=== PATIENT | female | born 1995 | race Hispanic/Latino ===

== ENCOUNTER 2017-11-21 18:06 | Emergency (ER) | payer OTHER ==
[~2017-11-21] VITALS: Ht 162.6 cm; Wt 104.3 kg
[~2017-11-21 18:06] MED LIST: ZANTAC150 MG PO
[2017-11-21] MEDS ORDERED: ALPRAZOLAM0.5 MG PO (18:31)
[2017-11-21] MEDS ORDERED: ONDANSETRON ODT8 MG PO (18:31)
[2017-11-21] MEDS ORDERED: AUGMENTIN 875-1 EACH PO (20:32)
== END 2017-11-21 20:36 | disposition home or self-care (01) ==
LOC: ED 18:06
DX: N89.8 Other specified noninflammatory disorders of vagina (principal); Z79.899 Other long term (current) drug therapy
CPT/HCPCS: 81001; 99283

== ENCOUNTER 2021-01-26 00:13 | Inpatient (IN) | payer OTHER ==
[~2021-01-26] VITALS: Ht 160 cm; Wt 111.1 kg
[~2021-01-26 00:13] MED LIST changes: +ALPRAZOLAM0.5 MG PO; +AUGMENTIN 875-1 EACH PO; +ONDANSETRON ODT8 MG PO
--- NOTE | 2021-01-26 02:37 | PR ---
[facility] [address] [facility] [address] [place] [address] Signed Progress Notes IP Datetime Report Generated by CPN: 01/26/2021 02:37 PROGRESS NOTES: [id number] Impression: Normal Progression of Labor Procedures: Artificial ROM VITAL SIGNS: [id number] Vital Signs: Reviewed; Within Normal Limits EXAM: [id number] Dilatation: 8.0 Effacement: 90 Station: -1 Contractions: every 3-4 minutes MEMBRANES: [id number] Membranes Status: Ruptured Comments: Doing well, will continure monitoring FETUS A: [id number] FHR Baseline: 130 Variability: Moderate 6-25bpm Accelerations: 15X15 Presentation: Vertex FETUS B: [id number] Signing Physician: Shekhar Nunez MD Copies: ~ *Electronically Signed* 01/26/21 0237 SHEKHAR NUNEZ MD PATIENT NAME: DESIREE SEPULVEDA PROGRESS NOTE DATE OF : 95 PHYSICIAN: SHEKHAR NUNEZ MD RPT #: [id number] REPORT IS CONFIDENTIAL AND NOT TO BE RELEASED WITHOUT AUTHORIZATION
--- NOTE | 2021-01-26 05:12 | PR ---
[facility] [address] [facility] [place], [place] [address] Signed Progress Notes IP Datetime Report Generated by CPN: 01/26/2021 05:12 PROGRESS NOTES: [id number] Impression: Arrest of Dilatation/Descent Procedures: Intrauterine Pressure Catheter Plan: Continue Present Management VITAL SIGNS: [id number] Vital Signs: Reviewed; Within Normal Limits EXAM: [id number] Dilatation: 9.0 Effacement: 90 Station: -1 Contractions: every 3-4 minutes MEMBRANES: [id number] Membranes Status: Ruptured Comments: No change in about 2 hours, contracitons seem adequate. Asael has been in High Fowlers position. Will try Hands-Knees. Discussed popssibility of C/S if continued arrest. FETUS A: [id number] FHR Baseline: 130 Variability: Moderate 6-25bpm Accelerations: 15X15 Presentation: Vertex FETUS B: [id number] Signing Physician: Shekhar Nunez MD Copies: ~ *Electronically Signed* 01/26/21511 SHEKHAR NUNEZ MD PATIENT NAME: DESIREE SEPULVEDA PROGRESS NOTE DATE OF : 95 PHYSICIAN: SHEKHAR NUNEZ MD [facility] #: [id number] REPORT IS CONFIDENTIAL AND NOT TO BE RELEASED WITHOUT AUTHORIZATION
--- NOTE | 2021-01-26 06:08 | PR ---
[facility] [address] [facility] [place], [place] [address] Signed Progress Notes IP Datetime Report Generated by CPN: 01/26/2021 06:08 PROGRESS NOTES: [id number] Impression: Arrest of Dilatation/Descent Procedures: Intrauterine Pressure Catheter Plan: Deliver- Section Informed Consent Obtain: Section Delivery VITAL SIGNS: [id number] Vital Signs: Reviewed; Within Normal Limits EXAM: [id number] Dilatation: 8.0 Effacement: 90 Station: -2 Contractions: every 3-4 minutes MEMBRANES: [id number] Membranes Status: Ruptured Comments: No change for 3 hours now, adequate contractions, with cervix less dilated and head slightly higher. Recommend C/S. Discussed procedure, risks, benefits, timing. Consent signed. OR and Anesthesia FETUS A: [id number] FHR Baseline: 130 Variability: Moderate 6-25bpm Accelerations: 15X15 Presentation: Vertex FETUS B: [id number] Signing Physician: Shekhar Nunez MD Copies: ~ *Electronically Signed* 01/26/21 0608 SHEKHAR NUNEZ MD PATIENT NAME: SEPULVEDADESIREE PROGRESS NOTE DATE OF : 95 PHYSICIAN: SHEKHAR NUNEZ MD RPT #: [id number] REPORT IS CONFIDENTIAL AND NOT TO BE RELEASED WITHOUT AUTHORIZATION
--- NOTE | 2021-01-26 08:21 | NUR ---
01/26/21 0821 Sun Andersen 0810: PT TO ROOM 102 FOR PACU RECOVERY. AWAKE AND ALERT. STATING 4/10 INCISIONAL PAIN. IV TYLENOL RECEIVED IN OR AND EPIDURAL DOSED JUST PRIOR TO END OF PROCEDURE. VSS, RESP EVEN AND UNLABORED. O2 SAT STABLE >98% ON RA. DENIES NAUSEA. FUNDUS FIRM, BLEEDING LIGHT 0819: SKIN TO SKIN WITH PT AND PT BEGINS TO BREASTFEED INDEPENDENTLY. REPORTING IMPROVED PAIN CONTROL WITH PREVIOUSLY GIVEN RX. VSS, RESP EVEN AND UNLABORED. SATS REMAIN STABLE. FUNDUS FIRM, BLEEDING LIGHT.
--- NOTE | 2021-01-27 08:21 | PR ---
[facility] [address] [facility] [place], [place] [address] Signed PP Progress Notes Datetime Report Generated by CPN: 01/27/2021 08:20 SUBJECTIVE: [id number] Pain: Within Normal Limits Nausea/Vomiting: Denies Flatus: Yes Bowel Movement: No Vital Signs: [id number] Vital Signs: Reviewed; Within Normal Limits EXAM: Ongoing Cardiovascular: Normal Respiratory: Normal Abdomen/Uterus: Normal Lochia: Normal Vulva/Perineum: Not Done Breasts: Not Done CVA Tenderness: Normal Extremities: Normal Incision: Normal Progress: Normal Exam Comments: Fundus firm U-2 nontender Incision healing well. IMPRESSION/PLAN/PROCEDURES: [id number] Impression: Normal Progression Plan: Continue Present Management Progress Notes: Pt seen and examined, doing well. Ambualting, voiding, and tolerating full diet. Pain and lochia minimal well. No fevers/chills or other concerns. Hgb 11.4. Anticipate d/c home tomorrow Signing Physician: Raz Francisco DO Copies: ~ *Electronically Signed* 01/27/21819 RAZ FRANCISCO DO PATIENT NAME: DESIREE SEPULVEDA RECORD #: [id number] PROGRESS NOTE DATE OF : 95 PHYSICIAN: RAZ FRANCISCO DO RPT #: [id number] REPORT IS CONFIDENTIAL AND NOT TO BE RELEASED WITHOUT AUTHORIZATION
--- NOTE | 2021-01-28 07:47 | PR ---
[facility] [address] [place], [place] [address] Signed PP Progress Notes Datetime Report Generated by CPN: 01/28/2021 07:47 SUBJECTIVE: [id number] Pain: Within Normal Limits Nausea/Vomiting: Denies Flatus: Yes Bowel Movement: No Vital Signs: [id number] Vital Signs: Reviewed; Within Normal Limits EXAM: Ongoing Cardiovascular: Normal Respiratory: Normal Abdomen/Uterus: Normal Lochia: Normal Vulva/Perineum: Not Done Breasts: Not Done CVA Tenderness: Normal Extremities: Normal Incision: Normal Progress: Normal Exam Comments: Fundus firm U-2. Incision clean dry and intact w/ eun in place. No erythema / edema. IMPRESSION/PLAN/PROCEDURES: [id number] Impression: Normal Progression Plan: Discharge Progress Notes: Pt seen and examined. Doing well. Ambulating, voiding, and tolerating full diet. Pain and lochia minimal. well. No fever/chills/lightheadedness or other concerns. Pt desires d/c home. Planning vasectomy for pp contraception. Rubella non-immune and received MMR vaccination . No other questions or concerns. Reviewed d/c instructions in detail. Will leave eun in with planned removal on . All questions answered to best of my ability and to pt's apparent satsifaction. Signing Physician: Raz Francisco DO Copies: ~ *Electronically Signed* 01/28/21 0767 RAZ FRANCISCO DO PATIENT NAME: DESIREE SEPULVEDA PROGRESS NOTE DATE OF : 95 PHYSICIAN: RAZ FRANCISCO DO RPT #: [id number] REPORT IS CONFIDENTIAL AND NOT TO BE RELEASED WITHOUT AUTHORIZATION
--- NOTE | 2021-01-29 08:51 | OR ---
[facility] [address] [place], [place] [address] Signed DATE OF OPERATION: 01/26/2021 SURGEON: Dimas Marie MD Patient of Dr. Marie. PREOPERATIVE DIAGNOSIS: Arrest of active phase posterior presentation. POSTOPERATIVE DIAGNOSIS: Arrest of active phase posterior presentation. PROCEDURE: Primary low transverse segment section, delivery of live male infant. NATIONAL SALES TRAINER: Dr. Francisco. ANESTHESIA: Epidural. ESTIMATED BLOOD LOSS: 700 mL. COMPLICATIONS: None. DRAINS: Brown to bladder. FINDINGS: Live male , Apgars 9 and 9, weight 6 pounds and 9 ounces. Baby was noted to be in the ROP presentation with asynclitic position. Normal uterus. Normal tubes and ovaries bilateral. DESCRIPTION OF PROCEDURE: The patient was brought into the operating room, placed supine position. After adequate epidural anesthesia was obtained, was prepped and draped in usual sterile fashion. The patient already had Brown catheter in place. A Pfannenstiel skin incision was made with a scalpel and extended through the subcutaneous tissue with scalpel and Bovie. The Electronically Signed By: DIMAS MARIE MD 01/29/21 0851 PATIENT NAME: DESIREE SEPULVEDA OPERATIVE REPORT DATE OF : 95 REPORT #: [id number] PHYSICIAN: DIMAS MARIE MD PCP: NO PRIMARY CARE PHYSICIAN REPORT IS CONFIDENTIAL AND NOT TO BE RELEASED WITHOUT AUTHORIZATION [facility] [address] [place], [place] [address] Signed fascia was nicked with scalpel and extended in transverse fashion using curved scissors. The underlying abdominal musculature was bluntly and sharply from the fascia above and below the incision. The abdominal musculature was bluntly and sharply along the midline. The peritoneum was grasped with hemostats, elevated, nicked with scissors and extended in a vertical fashion using curved scissors. The Jorgel self-retaining retractor was inserted into the incision and tightened in place. The lower uterine segment was identified and a small mauro was made with a scalpel in the lower uterine segment. Finger dissection was used to extend the incision in transverse fashion. The was noted to be in the vertex ROP asynclitic presentation. The 's head was easily delivered from the incision. The rest of the infant was easily delivered from the incision and the cord doubly clamped and cut. The waas passed off table in good condition to awaiting nurse. Placenta was manually removed and uterine cavity explored a lap pad to remove any retained membranes. An angle stitch of 0 Monocryl was placed at one end of the incision. The right angle had some excessive bleeding, so [id number] stitch of 0 Monocryl was placed at the right angle to control the bleeding and then a running locking stitch of 0-Monocryl starting at the other side used to close the incision. A 2nd running stitch of 0 Monocryl was used to imbricate the 1st layer. Good hemostasis was noted. The entire pelvis was irrigated, suctioned, examined, and noted to have good hemostasis, but the bladder flap incision did extend somewhat laterally and there were several raw areas in each angle. Both were irrigated and carefully inspected. No active bleeding was noted, but due to the raw areas, Tisseel was sprayed in all along the incision in the extension of the bladder flap. The Jorge L retractor was removed and sheet of ACell placed over the lower uterine segment to help with healing. The anterior wall peritoneum was closed using running stitch of 2-0 Vicryl suture. The abdominal musculature was reapproximated using interrupted stitch of 0 Vicryl suture. The abdominal wall incision was irrigated, suctioned, examined. Two areas in the abdominal musculature were bleeding. These were controlled with [id number] stitches of 0 Vicryl suture. Any superficial bleeding spots were cauterized with the Bovie. When good hemostasis was obtained, powdered ACell sprinkled over the abdominal musculature to help with healing and the fascia closed using 2 running stitches of 0 Vicryl suture meeting in the midline. The subcutaneous tissue was irrigated, suctioned, and examined, any superficial bleeding spots cauterized with the Bovie. The subcutaneous tissue was then closed using interrupted stitches of 3-0 Vicryl suture and the skin reapproximated using skin clips. The patient tolerated the procedure well, went to recovery room in good condition. The sponge, needle, and instrument count were correct at the end of the procedure. Electronically Signed By: DIMAS MARIE MD 01/29/21 0851 PATIENT NAME: DESIREE SEPULVEDA OPERATIVE REPORT DATE OF : 95 REPORT #: [id number] PHYSICIAN: DIMAS MARIE MD PCP: NO PRIMARY CARE PHYSICIAN REPORT IS CONFIDENTIAL AND NOT TO BE RELEASED WITHOUT AUTHORIZATION [address] [address] Signed Dimas Marie MD MJB/MODL /[id number] cc: Kiko Kenyon MD Copies: KIKO KENYON MD ~ Electronically Signed By: DIMAS MARIE MD 01/29/21 0851 PATIENT NAME: SEPULVEDADESIREE OPERATIVE REPORT DATE OF : 95 REPORT #: [id number] PHYSICIAN: DIMAS MARIE MD PCP: NO PRIMARY CARE PHYSICIAN REPORT IS CONFIDENTIAL AND NOT TO BE RELEASED WITHOUT AUTHORIZATION
== END 2021-01-28 11:40 | disposition home or self-care (01) | DRG 788 ==
LOC: FBCO 00:13 → FBC 00:35
PROVIDERS: ADMIT General Practice; ATTEND General Practice
PROC: 10H07YZ Insertion of Other Device into Products of Conception, Via Natural or Artificial Opening (ICD-10-PCS; 2021-01-26)
PROC: 10907ZC Drainage of Amniotic Fluid, Therapeutic from Products of Conception, Via Natural or Artificial Opening (ICD-10-PCS; 2021-01-26)
PROC: 3E0234Z Introduction of Serum, Toxoid and Vaccine into Muscle, Percutaneous Approach (ICD-10-PCS; 2021-01-26)
PROC: 10D00Z1 Extraction of Products of Conception, Low, Open Approach (ICD-10-PCS; principal; 2021-01-26 06:45)
DX: O62.1 Secondary uterine inertia (principal); Z37.0 Single live birth; O32.8XX0 Maternal care for other malpresentation of fetus, not applicable or unspecified; Z23 Encounter for immunization; Z3A.38 38 weeks gestation of pregnancy; O32.4XX0 Maternal care for high head at term, not applicable or unspecified; Z88.2 Allergy status to sulfonamides; Z86.16 Personal history of COVID-19; O99.214 Obesity complicating childbirth; O99.344 Other mental disorders complicating childbirth; E66.01 Morbid (severe) obesity due to excess calories; F41.9 Anxiety disorder, unspecified; O99.52 Diseases of the respiratory system complicating childbirth; J45.20 Mild intermittent asthma, uncomplicated
CPT/HCPCS: 01961; 36415; 59025; 85027; 90707; A9270; J0131; J0456; J0690; J1200; J1644; J2001; J2274; J2370; J2405; J2590; J2795; J3010; J7060; J7121; U0003